=== PATIENT | female | born 1985 | race Caucasian/White ===

== ENCOUNTER 2017-05-14 12:18 | Emergency (ER) | payer BC ==
[~2017-05-14] VITALS: Ht 170.2 cm; Wt 92.5 kg
[~2017-05-14 12:18] MED LIST: AMITRIPTYLINE H75 MG PO; ATIVAN1 MG PO; CARAFATE1 GM PO; CARAFATE100 MG/ML PO; CEFDINIR300 MG PO; CLEOCIN300 MG PO; DIFLUCAN100 MG PO; DILAUDID 11 MG/1 ML PO; DILAUDID2 MG PO; ENDOCET 5-3251 EACH PO; FLAGYL500 MG PO; FLEXERIL10 MG PO; FLUOXETINE HCL20 MG PO; FLUOXETINE HCL40 MG PO; HYDROCODON-ACE1 EAC7 PO; HYDROMORPHONE HC4 MG PO; IMODIUM MS REL1 EACH PO; INSULIN ASPART SQ; INSULIN PUMP SCCONT; LANTUS 3 M100 UNITS1 SC; LEVAQUIN500 MG PO; LEVEMIR FL100 UNIT/1 SC; LEVEMIR FL100 UNITS/ SC; LEVEMIR100 UNIT/2 SC; LIDODERM 5% P1 PATCH TD; LINZESS145 MCG PO; MAGNESIUM400 MG PO; MECLIZINE HCL25 MG PO; METOCLOPRAMIDE H5 MG PO; MIRALAX255 GM PO; NAPROSYN500 MG PO; NORCO 5/3251 TABLET PO; NOVOLOG 10100 UNITS/ SC; NOVOLOG PE100 UNITS/ SC; NOVOLOG PE100 UNITS/ SQ; OMEPRAZOLE40 M1 PO; OXYCODONE HCL10 MG PO; OXYCODONE HCL5 MG PO; PANTOPRAZOLE SO40 MG PO; PEPCID20 MG PO; PERCOCET 5/31 TABLET PO; PROTONIX20 MG PO; PROTONIX40 MG PO; PROZAC20 MG PO; REGLAN5 MG PO; RESTORIL15 MG PO; ROBITUSSIN COU118 M6 PO; SKELAXIN800 MG PO; SNAP INSULIN P1 EACH MC; TYLENOL EXTRA500 MG PO; TYLENOL WITH C1 EACH PO; ULTRAM50 MG PO; VICODIN 5-3001 EACH PO; VICODIN,LORT1 TABLET PO; ZOFRAN ODT4 MG PO; ZOFRAN ODT8 MG PO; ZOFRAN4 MG PO
[2017-05-14 14:53] LABS: ADD MIUA? YES; BILIRUBIN NEGATIVE; BLOOD SMALL; COLOR STRAW ((YELLOW)); GLUCOSE (STRIP) >=500; KETONES 80; LEUKOCYTES NEGATIVE; NITRITE NEGATIVE; PROTEIN (STRIP) NEGATIVE; SPECIFIC GRAVITY 1.033 (1.000-1.030); UROBILINOGEN 0.2 MG/DL (0.2-1.0)
[2017-05-14 15:04] LABS: BACTERIA RARE /HPF; EPITHELIAL CELLS 1+ /HPF; MUCUS NONE SEEN /LPF; UCUL ADDED? NO; WHITE BLOOD CELLS 0-5 /HPF (0-5)
[2017-05-14 15:12] LABS: EOSINOPHIL (%) 0.1 % (0-5); HEMATOCRIT 39.2 % (36.0-46.0); IMMATURE GRANULOCYTE (%) 1.1 % (0.0-0.7); IMMATURE GRANULOCYTE COUNT 0.1 K/uL; INSTRUMENT ABS NEUTROPHIL CT 7.6 K/uL; LYMPHOCYTE COUNT 1.9 K/uL (1.0-2.8); MCH 29.6 PG (29.0-34.0); MCHC 32.7 G/DL (30.0-36.0); MCV 90.7 FL (83-99); MEAN PLAT.VOLUME 10.2 uM^3 (9.5-12.4); MONOCYTE (%) 4.8 % (3-12); MONOCYTE COUNT 0.5 K/uL (0-0.8); NEUTROPHIL (%) 74.9 % (45-76); NEUTROPHIL COUNT 7.6 K/uL (1.8-6.4); PLATELET COUNT 234 K/uL (156-360); RBC DIS.WIDTH-CV 12.5 % (11.8-14.6); RBC DIS.WIDTH-SD 41.2 % (39-53); RED BLOOD COUNT 4.32 M/uL (3.80-5.20); WHITE BLOOD COUNT 10.1 K/uL (4.1-10.2)
[2017-05-14 15:16] LABS: CARBON DIOXIDE (BICARBONATE) 24.5 MEQ/L (20-31)
[2017-05-14 15:21] LABS: CHLORIDE 101 mEq/L (99-109); POTASSIUM 4.5 mEq/L (3.7-5.4); SODIUM 133 mEq/L (136-147)
[2017-05-14 15:25] LABS: ANION GAP 10 MEQ/L (2-14); TOTAL BILIRUBIN 0.8 mg/dL (0.0-1.0)
[2017-05-14 15:27] LABS: ALKALINE PHOSPHATASE 101 IU/L (3-129); GFR ESTIMATE (CALCULATED) > 59 mL/min/
[2017-05-14 15:28] LABS: UREA NITROGEN (BUN) 11 mg/dL (9-23)
[2017-05-14 15:34] LABS: GLUCOSE 517 mg/dL (70-99)
[2017-05-14 17:48] LABS: POINT-OF-CARE METER ID UU13113747
[2017-05-14] MEDS ORDERED: CHERATUSSIN AC473 ML PO (18:24)
[2017-05-14 19:27] VITALS: BP 109/61
[2017-05-15 22:07] LABS: POINT-OF-CARE METER ID UU13113778
== END 2017-05-14 19:30 | disposition home or self-care (01) ==
LOC: EME 12:18
PROVIDERS: Emergency Medicine
DX: E10.65 Type 1 diabetes mellitus with hyperglycemia (principal); E86.0 Dehydration; Z79.4 Long term (current) use of insulin; Z96.41 Presence of insulin pump (external) (internal); R10.30 Lower abdominal pain, unspecified; R05 Cough; R00.0 Tachycardia, unspecified; Z87.11 Personal history of peptic ulcer disease; Z87.891 Personal history of nicotine dependence
CPT/HCPCS: 36600; 80053; 81003; 82803; 82948; 85025; 93005; 99281; 99285; J1200; J2270; J2405; J7030

== ENCOUNTER 2017-06-14 17:21 | Emergency (ER) | payer BC ==
[~2017-06-14] VITALS: Ht 170.2 cm; Wt 89.8 kg
[~2017-06-14 17:21] MED LIST changes: +CHERATUSSIN AC473 ML PO
[2017-06-14 18:58] LABS: ADD MIUA? NO; BILIRUBIN NEGATIVE; BLOOD NEGATIVE; COLOR STRAW ((YELLOW)); GLUCOSE (STRIP) >=500; KETONES 20; LEUKOCYTES NEGATIVE; NITRITE NEGATIVE; PROTEIN (STRIP) NEGATIVE; SPECIFIC GRAVITY 1.038 (1.000-1.030); UCUL ADDED? NO; UROBILINOGEN 0.2 MG/DL (0.2-1.0)
[2017-06-14 19:41] LABS: HEMATOCRIT 40.4 % (36.0-46.0); MCH 30.3 PG (29.0-34.0); MCHC 33.4 G/DL (30.0-36.0); MCV 90.6 FL (83-99); MEAN PLAT.VOLUME 10.8 uM^3 (9.5-12.4); PLATELET COUNT 253 K/uL (156-360); RBC DIS.WIDTH-CV 12.5 % (11.8-14.6); RBC DIS.WIDTH-SD 41.1 % (39-53); RED BLOOD COUNT 4.46 M/uL (3.80-5.20); WHITE BLOOD COUNT 11.2 K/uL (4.1-10.2)
[2017-06-14 19:50] LABS: CHLORIDE 95 mEq/L (99-109); POTASSIUM 4.9 mEq/L (3.7-5.4); SODIUM 131 mEq/L (136-147)
[2017-06-14 19:53] LABS: ANION GAP 13 MEQ/L (2-14)
[2017-06-14 19:54] LABS: TOTAL BILIRUBIN 0.8 mg/dL (0.0-1.0)
[2017-06-14 19:56] LABS: ALKALINE PHOSPHATASE 111 IU/L (3-129); GFR ESTIMATE (CALCULATED) > 59 mL/min/
[2017-06-14 19:57] LABS: UREA NITROGEN (BUN) 12 mg/dL (9-23)
[2017-06-14 19:59] LABS: GLUCOSE 742 mg/dL (70-99)
[2017-06-14 20:04] LABS: QUANTITATIVE HCG < 4.0 MIU/ML
[2017-06-14 22:10] LABS: POINT-OF-CARE METER ID UU13113702
[2017-06-15 00:24] LABS: POINT-OF-CARE METER ID UU13113747
[2017-06-15 00:54] VITALS: BP 102/78
== END 2017-06-15 00:55 | disposition home or self-care (01) ==
LOC: EME 17:21
PROVIDERS: Emergency Medicine
DX: E11.65 Type 2 diabetes mellitus with hyperglycemia (principal); R10.31 Right lower quadrant pain; Z79.4 Long term (current) use of insulin; K21.9 Gastro-esophageal reflux disease without esophagitis; F32.9 Major depressive disorder, single episode, unspecified; F41.9 Anxiety disorder, unspecified; Z88.0 Allergy status to penicillin; Z88.8 Allergy status to other drugs, medicaments and biological substances; Z87.891 Personal history of nicotine dependence
CPT/HCPCS: 71020; 74176; 80053; 81003; 82010; 82948; 84702; 85027; 99281; 99285; J3010; J7030

== ENCOUNTER 2017-07-29 14:34 | Emergency (ER) | payer SELFPAY ==
[~2017-07-29] VITALS: Ht 167.6 cm; Wt 93.0 kg
[2017-07-29 15:08] LABS: HEMATOCRIT 39.4 % (36.0-46.0); MCHC 33.2 G/DL (30.0-36.0); MCV 90.4 FL (83-99); MEAN PLAT.VOLUME 9.7 uM^3 (9.5-12.4); PLATELET COUNT 385 K/uL (156-360); RBC DIS.WIDTH-CV 12.7 % (11.8-14.6); RBC DIS.WIDTH-SD 42.1 % (39-53); RED BLOOD COUNT 4.36 M/uL (3.80-5.20); WHITE BLOOD COUNT 8.9 K/uL (4.1-10.2)
[2017-07-29 15:22] LABS: ADD MIUA? YES; BILIRUBIN NEGATIVE; BLOOD SMALL; COLOR COLORLESS ((YELLOW)); GLUCOSE (STRIP) >=500; KETONES NEGATIVE; LEUKOCYTES NEGATIVE; NITRITE NEGATIVE; PROTEIN (STRIP) NEGATIVE; SPECIFIC GRAVITY 1.028 (1.000-1.030); UROBILINOGEN 0.2 MG/DL (0.2-1.0)
[2017-07-29 15:24] LABS: CHLORIDE 98 mEq/L (99-109); SODIUM 132 mEq/L (136-147)
[2017-07-29 15:27] LABS: ANION GAP 10 MEQ/L (2-14)
[2017-07-29 15:28] LABS: TOTAL BILIRUBIN 0.6 mg/dL (0.0-1.0)
[2017-07-29 15:29] LABS: ALKALINE PHOSPHATASE 125 IU/L (3-129)
[2017-07-29 15:30] LABS: GFR ESTIMATE (CALCULATED) > 59 mL/min/
[2017-07-29 15:31] LABS: UREA NITROGEN (BUN) 15 mg/dL (9-23)
[2017-07-29 15:33] LABS: BACTERIA NONE SEEN /HPF; EPITHELIAL CELLS RARE /HPF; MUCUS NONE SEEN /LPF; RED BLOOD CELLS 0-5 /HPF (0-5); UCUL ADDED? NO; WHITE BLOOD CELLS 0-5 /HPF (0-5)
[2017-07-29 15:37] LABS: GLUCOSE 522 mg/dL (70-99)
[2017-07-29 15:38] LABS: QUANTITATIVE HCG < 4.0 MIU/ML
[2017-07-29 16:42] LABS: CARBON DIOXIDE (BICARBONATE) 29.8 MEQ/L (20-31)
[2017-07-29 17:08] LABS: POINT-OF-CARE METER ID UU13113702
[2017-07-29 19:10] LABS: POINT-OF-CARE METER ID UU13113702
[2017-07-29] MEDS ORDERED: MUCINEX DM ER1 EACH PO (19:11)
[2017-07-29 19:15] VITALS: BP 101/86
[2017-07-31 21:28] LABS: POINT-OF-CARE METER ID UU13113702
[2017-07-31 21:28] LABS: POINT-OF-CARE METER ID UU13113778
== END 2017-07-29 19:26 | disposition home or self-care (01) ==
LOC: EME 14:34
DX: E11.65 Type 2 diabetes mellitus with hyperglycemia (principal); R10.9 Unspecified abdominal pain; R51 Headache; R11.0 Nausea; R35.0 Frequency of micturition; Z79.4 Long term (current) use of insulin; Z96.41 Presence of insulin pump (external) (internal); Z87.11 Personal history of peptic ulcer disease; Z87.891 Personal history of nicotine dependence
CPT/HCPCS: 80053; 81003; 82010; 82803; 82948; 84702; 85027; 99281; 99285; J7030

== ENCOUNTER 2018-01-05 19:45 | Inpatient (IN) | payer BC ==
[~2018-01-05] VITALS: Ht 170.2 cm; Wt 99.8 kg
[~2018-01-05 19:45] MED LIST changes: +INSULIN PUMP MC; +MUCINEX DM ER1 EACH PO
[2018-01-05 20:45] LABS: APPEARANCE CLEAR ((CLEAR)); BILIRUBIN NEGATIVE; BLOOD NEGATIVE; COLOR STRAW ((YELLOW)); GLUCOSE (STRIP) >=500; KETONES 80; LEUKOCYTES NEGATIVE; NITRITE NEGATIVE; PROTEIN (STRIP) NEGATIVE; UCUL ADDED? NO; UROBILINOGEN 0.2 MG/DL (0.2-1.0)
[2018-01-05 20:53] LABS: BASOPHIL (%) 0.5 % (0-1); BASOPHIL COUNT 0.1 K/uL (0-0.1); EOSINOPHIL (%) 0.4 % (0-5); HEMATOCRIT 31.8 % (36.0-46.0); HEMOGLOBIN 10.7 G/DL (11.9-15.5); IMMATURE GRANULOCYTE (%) 2.1 % (0.0-0.7); LYMPHOCYTE COUNT 1.9 K/uL (1.0-2.8); MCH 29.9 PG (29.0-34.0); MCHC 33.6 G/DL (30.0-36.0); MCV 88.8 FL (83-99); MONOCYTE (%) 4.7 % (3-12); MONOCYTE COUNT 0.5 K/uL (0-0.8); NEUTROPHIL (%) 73.3 % (45-76); NEUTROPHIL COUNT 7.3 K/uL (1.8-6.4); PLATELET COUNT 364 K/uL (156-360); RBC DIS.WIDTH-CV 13.2 % (11.8-14.6); RBC DIS.WIDTH-SD 42.5 % (39-53); RED BLOOD COUNT 3.58 M/uL (3.80-5.20)
[2018-01-05 21:08] LABS: ALBUMIN 3.8 g/dL (3.2-4.8)
[2018-01-05 21:09] LABS: CHLORIDE 95 mEq/L (99-109); POTASSIUM 4.8 mEq/L (3.7-5.4); SODIUM 132 mEq/L (136-147)
[2018-01-05 21:11] LABS: TOTAL PROTEIN 7.4 g/dL (6.4-8.3)
[2018-01-05 21:13] LABS: TOTAL BILIRUBIN 0.7 mg/dL (0.0-1.0)
[2018-01-05 21:14] LABS: ALKALINE PHOSPHATASE 118 IU/L (3-129)
[2018-01-05 21:15] LABS: GFR ESTIMATE (CALCULATED) > 59 mL/min/
[2018-01-05 21:16] LABS: AST (GOT) 10 IU/L (2-34); UREA NITROGEN (BUN) 16 mg/dL (9-23)
[2018-01-05 21:17] LABS: ALT (GPT) 27 IU/L (3-49)
[2018-01-05 21:18] LABS: LIPASE 3 U/L (1.0-51.0)
[2018-01-05 21:19] LABS: GLUCOSE 740 mg/dL (70-99)
[2018-01-05] MEDS ORDERED: ROBITUSSIN AC,T10 ML PO (22:59)
[2018-01-05] MEDS ORDERED: ATIVAN0.5 MG PO (23:02)
[2018-01-05] MEDS ORDERED: AZITHROMYCIN250 MG1 PO (23:02)
[2018-01-05] MEDS ORDERED: CLONAZEPAM1 MG PO (23:02)
[2018-01-05] MEDS ORDERED: ROBAXIN500 MG PO (23:02)
[2018-01-05] MEDS ORDERED: TRAZODONE HCL50 MG PO (23:03)
[2018-01-05] MEDS ORDERED: GABAPENTIN300 MG PO (23:03)
[2018-01-06 02:01] VITALS: BP 108/59
[2018-01-06 06:25] LABS: CHLORIDE 103 MEQ/L (99-109); UREA NITROGEN (BUN) 10 mg/dL (9-23)
[2018-01-06 06:30] LABS: CREATININE 0.5 MG/DL (0.6-1.3); GFR ESTIMATE (CALCULATED) > 59 mL/min/; GLUCOSE 74 mg/dL (70-99); POTASSIUM 3.8 MEQ/L (3.7-5.4); SODIUM 139 MEQ/L (136-147)
[2018-01-06 08:44] VITALS: BP 96/54
[2018-01-06 10:23] VITALS: BP 131/76
[2018-01-06 12:36] LABS: HEMOGLOBIN A1c (GLYCOHEMOGLOB) 10.3 % (Below 5.7)
[2018-01-06 15:42] VITALS: BP 131/84
[2018-01-06 17:37] LABS: BENZODIAZEPINES, URINE SCREEN Negative (200 ng/mL)
[2018-01-07 00:17] VITALS: BP 122/58
[2018-01-07 06:18] LABS: BASOPHIL (%) 0.6 % (0-1); BASOPHIL COUNT 0.1 K/uL (0-0.1); EOSINOPHIL COUNT 0.1 K/uL (0-0.3); HEMATOCRIT 33.3 % (36.0-46.0); HEMOGLOBIN 10.9 G/DL (11.9-15.5); IMMATURE GRANULOCYTE (%) 3.5 % (0.0-0.7); LYMPHOCYTE (%) 34.9 % (15-42); LYMPHOCYTE COUNT 2.9 K/uL (1.0-2.8); MCH 29.5 PG (29.0-34.0); MCHC 32.7 G/DL (30.0-36.0); MCV 90.2 FL (83-99); MONOCYTE COUNT 0.5 K/uL (0-0.8); NEUTROPHIL COUNT 4.5 K/uL (1.8-6.4); PLATELET COUNT 323 K/uL (156-360); RBC DIS.WIDTH-CV 13.3 % (11.8-14.6); RBC DIS.WIDTH-SD 43.9 % (39-53); RED BLOOD COUNT 3.69 M/uL (3.80-5.20); WHITE BLOOD COUNT 8.3 K/uL (4.1-10.2)
[2018-01-07 06:44] LABS: ALKALINE PHOSPHATASE 67 IU/L (3-129); ALT (GPT) 13 IU/L (3-49); AST (GOT) 8 IU/L (2-34); CHLORIDE 105 MEQ/L (99-109); CREATININE 0.5 MG/DL (0.6-1.3); GFR ESTIMATE (CALCULATED) > 59 mL/min/; SODIUM 139 MEQ/L (136-147); TOTAL BILIRUBIN 0.3 MG/DL (0.0-1.0); TOTAL PROTEIN 5.7 G/DL (6.4-8.3); UREA NITROGEN (BUN) 7 mg/dL (9-23)
[2018-01-07 06:45] VITALS: BP 129/70
[2018-01-07 06:47] LABS: GLUCOSE 339 mg/dL (70-99); POTASSIUM 4.6 MEQ/L (3.7-5.4)
[2018-01-07 06:49] VITALS: BP 121/67
== END 2018-01-07 12:17 | disposition home or self-care (01) | DRG 639 ==
LOC: EME 19:45 → EDOF 23:54 → 5EAST 23:54 → ENRESERV 23:59 → 5EAST 01-06 01:47
PROVIDERS: Emergency Medicine; Hospitalist; Internal Medicine
DX: E10.65 Type 1 diabetes mellitus with hyperglycemia (principal); J02.9 Acute pharyngitis, unspecified; F41.0 Panic disorder [episodic paroxysmal anxiety]; F32.9 Major depressive disorder, single episode, unspecified; F17.200 Nicotine dependence, unspecified, uncomplicated; I10 Essential (primary) hypertension; K27.9 Peptic ulcer, site unspecified, unspecified as acute or chronic, without hemorrhage or perforation; K21.9 Gastro-esophageal reflux disease without esophagitis; E66.9 Obesity, unspecified; Z68.34 Body mass index [BMI] 34.0-34.9, adult; G47.00 Insomnia, unspecified; Z79.4 Long term (current) use of insulin; Z96.41 Presence of insulin pump (external) (internal); Z90.710 Acquired absence of both cervix and uterus; Z83.3 Family history of diabetes mellitus; Z82.49 Family history of ischemic heart disease and other diseases of the circulatory system
CPT/HCPCS: 71045; 80048; 80053; 80306 90; 81003; 82800; 82948; 83036; 83690; 85025; 99281; 99285; J1650; J2270; J2405; J3010; J7030

== ENCOUNTER 2018-02-11 14:05 | Inpatient (IN) | payer BC ==
[2018-02-11] VITALS (8 sets, daily range): BP systolic 91–139; BP diastolic 64–81
[~2018-02-11] VITALS: Ht 170.2 cm; Wt 91.6 kg
[~2018-02-11 14:05] MED LIST changes: +ATIVAN0.5 MG PO; +AZITHROMYCIN250 MG1 PO; +CLONAZEPAM1 MG PO; +GABAPENTIN300 MG PO; +ROBAXIN500 MG PO; +ROBITUSSIN AC,T10 ML PO; +TRAZODONE HCL50 MG PO
[2018-02-11 14:54] LABS: APPEARANCE CLEAR ((CLEAR)); BILIRUBIN NEGATIVE; BLOOD NEGATIVE; COLOR COLORLESS ((YELLOW)); GLUCOSE (STRIP) >=500; KETONES 80; LEUKOCYTES NEGATIVE; NITRITE NEGATIVE; PROTEIN (STRIP) NEGATIVE; SPECIFIC GRAVITY 1.029 (1.000-1.030); UCUL ADDED? NO; UROBILINOGEN 0.2 MG/DL (0.2-1.0)
[2018-02-11 15:22] LABS: BASOPHIL (%) 0.3 % (0-1); EOSINOPHIL (%) 0 % (0-5); HEMATOCRIT 37.4 % (36.0-46.0); HEMOGLOBIN 12.9 G/DL (11.9-15.5); IMMATURE GRANULOCYTE (%) 0.5 % (0.0-0.7); LYMPHOCYTE (%) 12.4 % (15-42); LYMPHOCYTE COUNT 1.9 K/uL (1.0-2.8); MCH 30.3 PG (29.0-34.0); MCHC 34.5 G/DL (30.0-36.0); MCV 87.8 FL (83-99); MONOCYTE (%) 3.4 % (3-12); MONOCYTE COUNT 0.5 K/uL (0-0.8); NEUTROPHIL (%) 83.4 % (45-76); NEUTROPHIL COUNT 12.8 K/uL (1.8-6.4); PLATELET COUNT 280 K/uL (156-360); RBC DIS.WIDTH-SD 41.8 % (39-53); RED BLOOD COUNT 4.26 M/uL (3.80-5.20); WHITE BLOOD COUNT 15.4 K/uL (4.1-10.2)
[2018-02-11 15:24] LABS: CARBON DIOXIDE (BICARBONATE) 20.7 MEQ/L (20-31)
[2018-02-11 15:29] LABS: ALBUMIN 4.2 g/dL (3.2-4.8); CHLORIDE 97 mEq/L (99-109); POTASSIUM 4.9 mEq/L (3.7-5.4); SODIUM 133 mEq/L (136-147)
[2018-02-11 15:32] LABS: TOTAL PROTEIN 7.7 g/dL (6.4-8.3)
[2018-02-11 15:34] LABS: TOTAL BILIRUBIN 1.2 mg/dL (0.0-1.0)
[2018-02-11 15:35] LABS: ALKALINE PHOSPHATASE 109 IU/L (3-129)
[2018-02-11 15:36] LABS: CREATININE 1.1 mg/dL (0.6-1.3); GFR ESTIMATE (CALCULATED) > 59 mL/min/
[2018-02-11 15:37] LABS: AST (GOT) 10 IU/L (2-34); UREA NITROGEN (BUN) 15 mg/dL (9-23)
[2018-02-11 15:38] LABS: ALT (GPT) 14 IU/L (3-49)
[2018-02-11 15:40] LABS: GLUCOSE 670 mg/dL (70-99)
[2018-02-11 15:44] LABS: QUANTITATIVE HCG < 4.0 MIU/ML
[2018-02-11] MEDS ORDERED: TYLENOL WITH C1 EACH PO (16:19)
[2018-02-11] MEDS ORDERED: CARAFATE100 MG/ML PO (16:19)
[2018-02-12] VITALS (13 sets, daily range): BP systolic 82–129; BP diastolic 57–93
[2018-02-12 01:00] LABS: CHLORIDE 103 mEq/L (99-109); SODIUM 136 mEq/L (136-147)
[2018-02-12 01:01] LABS: POTASSIUM 3.7 mEq/L (3.7-5.4)
[2018-02-12 01:02] LABS: GLUCOSE 193 mg/dL (70-99)
[2018-02-12 01:05] LABS: PHOSPHORUS 2.4 mg/dL (2.5-4.9)
[2018-02-12 01:06] LABS: CREATININE 0.7 mg/dL (0.6-1.3); GFR ESTIMATE (CALCULATED) > 59 mL/min/
[2018-02-12 01:07] LABS: UREA NITROGEN (BUN) 11 mg/dL (9-23)
[2018-02-12 06:41] LABS: CHLORIDE 104 MEQ/L (99-109); CREATININE 0.6 MG/DL (0.6-1.3); GFR ESTIMATE (CALCULATED) > 59 mL/min/; GLUCOSE 127 mg/dL (70-99); POTASSIUM 3.9 MEQ/L (3.7-5.4); SODIUM 141 MEQ/L (136-147); UREA NITROGEN (BUN) 11 mg/dL (9-23)
[2018-02-12 09:53] LABS: CHLORIDE 102 MEQ/L (99-109); CREATININE 0.5 MG/DL (0.6-1.3); GFR ESTIMATE (CALCULATED) > 59 mL/min/; PHOSPHORUS 3.1 mg/dL (2.5-4.9); SODIUM 137 MEQ/L (136-147); UREA NITROGEN (BUN) 8 mg/dL (9-23)
[2018-02-12 09:58] LABS: GLUCOSE 246 mg/dL (70-99)
[2018-02-12 14:18] LABS: CHLORIDE 105 MEQ/L (99-109); CREATININE 0.6 MG/DL (0.6-1.3); GFR ESTIMATE (CALCULATED) > 59 mL/min/; GLUCOSE 175 mg/dL (70-99); PHOSPHORUS 2.6 mg/dL (2.5-4.9); POTASSIUM 3.3 MEQ/L (3.7-5.4); SODIUM 139 MEQ/L (136-147); UREA NITROGEN (BUN) 9 mg/dL (9-23)
== END 2018-02-12 13:58 | disposition home or self-care (01) | DRG 919 ==
LOC: EME 14:05 → EDOF 16:25 → ENRESERV 16:26 → 4WEST 18:09
PROVIDERS: Emergency Medicine; Internal Medicine Critical Care Medicine; Internal Medicine Pulmonary Disease
DX: T85.694A Other mechanical complication of insulin pump, initial encounter (principal); E10.10 Type 1 diabetes mellitus with ketoacidosis without coma; Z96.41 Presence of insulin pump (external) (internal); G89.29 Other chronic pain; R10.9 Unspecified abdominal pain; F17.200 Nicotine dependence, unspecified, uncomplicated; E66.9 Obesity, unspecified; K21.9 Gastro-esophageal reflux disease without esophagitis; F41.9 Anxiety disorder, unspecified; G43.909 Migraine, unspecified, not intractable, without status migrainosus; F32.9 Major depressive disorder, single episode, unspecified; Z87.11 Personal history of peptic ulcer disease; Z79.4 Long term (current) use of insulin; Z88.2 Allergy status to sulfonamides; Z88.0 Allergy status to penicillin
CPT/HCPCS: 80048; 80048 91; 80053; 81003; 82010; 82803; 82948; 83735; 84100; 84702; 85025; 87641; 99281; 99285; J1170; J1815; J2060; J3010; J7030; J7050

== ENCOUNTER 2018-03-09 22:37 | Emergency (ER) | payer BC ==
[~2018-03-09] VITALS: Ht 170.2 cm; Wt 94.9 kg
[2018-03-09 22:58] LABS: HEMATOCRIT 32.9 % (36.0-46.0); MCH 29.9 PG (29.0-34.0); MCHC 33.4 G/DL (30.0-36.0); MCV 89.4 FL (83-99); PLATELET COUNT 243 K/uL (156-360); RBC DIS.WIDTH-CV 12.8 % (11.8-14.6); RBC DIS.WIDTH-SD 42.1 % (39-53); RED BLOOD COUNT 3.68 M/uL (3.80-5.20); WHITE BLOOD COUNT 7.5 K/uL (4.1-10.2)
[2018-03-09 23:20] LABS: CHLORIDE 96 mEq/L (99-109); POTASSIUM 4.3 mEq/L (3.7-5.4); SODIUM 133 mEq/L (136-147)
[2018-03-09 23:23] LABS: TOTAL PROTEIN 7.2 g/dL (6.4-8.3)
[2018-03-09 23:25] LABS: TOTAL BILIRUBIN 0.4 mg/dL (0.0-1.0)
[2018-03-09 23:26] LABS: ALKALINE PHOSPHATASE 100 IU/L (3-129); GFR ESTIMATE (CALCULATED) > 59 mL/min/
[2018-03-09 23:27] LABS: UREA NITROGEN (BUN) 17 mg/dL (9-23)
[2018-03-09 23:28] LABS: AST (GOT) 11 IU/L (2-34)
[2018-03-09 23:29] LABS: ALT (GPT) 16 IU/L (3-49)
[2018-03-09 23:35] LABS: QUANTITATIVE HCG < 4.0 MIU/ML
[2018-03-09 23:36] LABS: GLUCOSE 682 mg/dL (70-99)
[2018-03-10 00:19] LABS: MAGNESIUM 1.9 mg/dL (1.3-2.7)
[2018-03-10 00:26] LABS: PHOSPHORUS 3.8 mg/dL (2.5-4.9)
[2018-03-10 00:27] LABS: LIPASE 5 U/L (1.0-51.0)
[2018-03-10 00:38] LABS: CARBON DIOXIDE (BICARBONATE) 31.1 MEQ/L (20-31)
[2018-03-10 02:06] LABS: APPEARANCE CLEAR ((CLEAR)); BILIRUBIN NEGATIVE; BLOOD NEGATIVE; COLOR COLORLESS ((YELLOW)); GLUCOSE (STRIP) >=500; KETONES 20; LEUKOCYTES NEGATIVE; NITRITE NEGATIVE; PROTEIN (STRIP) NEGATIVE; UCUL ADDED? NO; UROBILINOGEN 0.2 MG/DL (0.2-1.0)
[2018-03-10] MEDS ORDERED: PHENERGAN DM SYR1 ML PO (04:40)
[2018-03-10] MEDS ORDERED: ZOFRAN4 MG PO (04:41)
[2018-03-10] MEDS ORDERED: TESSALON PERLE100 MG PO (04:47)
[2018-03-10] MEDS ORDERED: ROBITUSSIN DM118 ML PO (04:47)
[2018-03-10 04:54] VITALS: BP 100/63
== END 2018-03-10 04:55 | disposition home or self-care (01) ==
LOC: EME 22:37
PROVIDERS: Emergency Medicine
DX: E10.65 Type 1 diabetes mellitus with hyperglycemia (principal); R05 Cough; R11.2 Nausea with vomiting, unspecified; Z79.4 Long term (current) use of insulin; Z96.41 Presence of insulin pump (external) (internal); Z87.11 Personal history of peptic ulcer disease; Z88.0 Allergy status to penicillin; Z88.2 Allergy status to sulfonamides; F17.200 Nicotine dependence, unspecified, uncomplicated
CPT/HCPCS: 71046; 80053; 81003; 82010; 82803; 82948; 83690; 83735; 84100; 84702; 85027; 99281; 99285; J2270; J2405; J7030; Q0169

== ENCOUNTER 2018-04-03 16:34 | Inpatient (IN) | payer BC ==
[~2018-04-03] VITALS: Ht 170.2 cm; Wt 87.4 kg
[~2018-04-03 16:34] MED LIST changes: +PHENERGAN DM SYR1 ML PO; -PROTONIX20 MG PO; +ROBITUSSIN DM118 ML PO; +TESSALON PERLE100 MG PO
[2018-04-03 17:37] LABS: APPEARANCE CLEAR ((CLEAR)); BILIRUBIN NEGATIVE; BLOOD NEGATIVE; COLOR STRAW ((YELLOW)); GLUCOSE (STRIP) >=500; KETONES 80; LEUKOCYTES NEGATIVE; NITRITE NEGATIVE; PROTEIN (STRIP) NEGATIVE; SPECIFIC GRAVITY 1.026 (1.000-1.030); UCUL ADDED? NO; UROBILINOGEN 0.2 MG/DL (0.2-1.0)
[2018-04-03 17:44] LABS: HEMATOCRIT 36.5 % (36.0-46.0); HEMOGLOBIN 12.4 G/DL (11.9-15.5); MCH 30.4 PG (29.0-34.0); MCV 89.5 FL (83-99); PLATELET COUNT 267 K/uL (156-360); RBC DIS.WIDTH-SD 42.2 % (39-53); RED BLOOD COUNT 4.08 M/uL (3.80-5.20); WHITE BLOOD COUNT 14.2 K/uL (4.1-10.2)
[2018-04-03 17:49] LABS: CARBON DIOXIDE (BICARBONATE) 9.6 MEQ/L (20-31)
[2018-04-03 17:55] LABS: ALBUMIN 4.3 g/dL (3.2-4.8); CHLORIDE 100 mEq/L (99-109); POTASSIUM 4.7 mEq/L (3.7-5.4); SODIUM 129 mEq/L (136-147)
[2018-04-03 17:57] LABS: TOTAL PROTEIN 7.7 g/dL (6.4-8.3)
[2018-04-03 17:59] LABS: TOTAL BILIRUBIN 0.6 mg/dL (0.0-1.0)
[2018-04-03 18:01] LABS: ALKALINE PHOSPHATASE 95 IU/L (3-129); CREATININE 1.1 mg/dL (0.6-1.3); GFR ESTIMATE (CALCULATED) > 59 mL/min/
[2018-04-03 18:02] LABS: UREA NITROGEN (BUN) 10 mg/dL (9-23)
[2018-04-03 18:03] LABS: AST (GOT) 10 IU/L (2-34)
[2018-04-03 18:04] LABS: ALT (GPT) 14 IU/L (3-49); LIPASE 4 U/L (1.0-51.0)
[2018-04-03 18:07] LABS: GLUCOSE 598 mg/dL (70-99)
[2018-04-03] MEDS ORDERED: ACETAMINOPHEN-1 EAC1 PO (19:06)
[2018-04-03] MEDS ORDERED: QVAR REDIHALE10.6 G1 IH (19:07)
[2018-04-03 20:24] VITALS: BP 127/90
[2018-04-03 20:30] VITALS: BP 112/79
[2018-04-03 21:00] VITALS: BP 114/72
[2018-04-03 21:18] LABS: CHLORIDE 109 mEq/L (99-109); POTASSIUM 4.6 mEq/L (3.7-5.4); SODIUM 135 mEq/L (136-147)
[2018-04-03 21:21] LABS: GLUCOSE 272 mg/dL (70-99)
[2018-04-03 21:23] LABS: GFR ESTIMATE (CALCULATED) > 59 mL/min/
[2018-04-03 21:24] LABS: UREA NITROGEN (BUN) 8 mg/dL (9-23)
[2018-04-03 21:34] LABS: PHOSPHORUS 2.2 mg/dL (2.5-4.9)
[2018-04-03 22:00] VITALS: BP 105/64
[2018-04-03 23:00] VITALS: BP 113/89
[2018-04-04] VITALS (23 sets, daily range): BP systolic 88–135; BP diastolic 59–88
[2018-04-04 00:41] LABS: CHLORIDE 107 mEq/L (99-109); POTASSIUM 4.1 mEq/L (3.7-5.4); SODIUM 135 mEq/L (136-147)
[2018-04-04 00:43] LABS: GLUCOSE 227 mg/dL (70-99)
[2018-04-04 00:47] LABS: CREATININE 0.8 mg/dL (0.6-1.3); GFR ESTIMATE (CALCULATED) > 59 mL/min/; PHOSPHORUS 2.1 mg/dL (2.5-4.9)
[2018-04-04 00:48] LABS: UREA NITROGEN (BUN) 7 mg/dL (9-23)
[2018-04-04 04:33] LABS: CHLORIDE 109 mEq/L (99-109); POTASSIUM 4.5 mEq/L (3.7-5.4); SODIUM 134 mEq/L (136-147)
[2018-04-04 04:34] LABS: MAGNESIUM 1.7 mg/dL (1.3-2.7)
[2018-04-04 04:35] LABS: GLUCOSE 181 mg/dL (70-99)
[2018-04-04 04:38] LABS: PHOSPHORUS 2.1 mg/dL (2.5-4.9)
[2018-04-04 04:39] LABS: CREATININE 0.7 mg/dL (0.6-1.3); GFR ESTIMATE (CALCULATED) > 59 mL/min/
[2018-04-04 04:39] LABS: PHOSPHORUS 2.1 mg/dL (2.5-4.9)
[2018-04-04 04:40] LABS: UREA NITROGEN (BUN) 6 mg/dL (9-23)
[2018-04-04 09:01] LABS: CHLORIDE 105 MEQ/L (99-109); SODIUM 134 MEQ/L (136-147)
[2018-04-04 09:07] LABS: CREATININE 0.5 MG/DL (0.6-1.3); GFR ESTIMATE (CALCULATED) > 59 mL/min/; GLUCOSE 197 mg/dL (70-99); PHOSPHORUS 2.1 mg/dL (2.5-4.9); UREA NITROGEN (BUN) 5 mg/dL (9-23)
[2018-04-04 10:00] LABS: HEMOGLOBIN A1c (GLYCOHEMOGLOB) 10.3 % (Below 5.7)
[2018-04-04 12:51] LABS: CHLORIDE 107 MEQ/L (99-109); POTASSIUM 3.7 MEQ/L (3.7-5.4); SODIUM 137 MEQ/L (136-147)
[2018-04-04 12:56] LABS: CREATININE 0.6 MG/DL (0.6-1.3); GFR ESTIMATE (CALCULATED) > 59 mL/min/; PHOSPHORUS 1.9 mg/dL (2.5-4.9); UREA NITROGEN (BUN) 7 mg/dL (9-23)
[2018-04-04 12:57] LABS: GLUCOSE 90 mg/dL (70-99)
[2018-04-04 14:55] LABS: BASOPHIL (%) 0.3 % (0-1); EOSINOPHIL (%) 0.7 % (0-5); EOSINOPHIL COUNT 0.1 K/uL (0-0.3); HEMATOCRIT 32.6 % (36.0-46.0); IMMATURE GRANULOCYTE (%) 0.9 % (0.0-0.7); LYMPHOCYTE (%) 22.6 % (15-42); LYMPHOCYTE COUNT 1.7 K/uL (1.0-2.8); MCH 29.9 PG (29.0-34.0); MCHC 33.7 G/DL (30.0-36.0); MCV 88.6 FL (83-99); MONOCYTE (%) 5.1 % (3-12); MONOCYTE COUNT 0.4 K/uL (0-0.8); NEUTROPHIL (%) 70.4 % (45-76); NEUTROPHIL COUNT 5.3 K/uL (1.8-6.4); PLATELET COUNT 218 K/uL (156-360); RBC DIS.WIDTH-CV 13.1 % (11.8-14.6); RBC DIS.WIDTH-SD 42.6 % (39-53); RED BLOOD COUNT 3.68 M/uL (3.80-5.20); WHITE BLOOD COUNT 7.5 K/uL (4.1-10.2)
[2018-04-04 15:23] LABS: CHLORIDE 105 MEQ/L (99-109); CREATININE 0.5 MG/DL (0.6-1.3); GFR ESTIMATE (CALCULATED) > 59 mL/min/; MAGNESIUM 1.8 mg/dl (1.3-2.7); POTASSIUM 4.1 MEQ/L (3.7-5.4); SODIUM 134 MEQ/L (136-147); UREA NITROGEN (BUN) 9 mg/dL (9-23)
[2018-04-04 15:28] LABS: GLUCOSE 315 mg/dL (70-99)
[2018-04-04 16:20] LABS: CHLORIDE 104 MEQ/L (99-109); POTASSIUM 4.4 MEQ/L (3.7-5.4); SODIUM 133 MEQ/L (136-147)
[2018-04-04 16:26] LABS: CREATININE 0.6 MG/DL (0.6-1.3); GFR ESTIMATE (CALCULATED) > 59 mL/min/; GLUCOSE 392 mg/dL (70-99); UREA NITROGEN (BUN) 9 mg/dL (9-23)
[2018-04-04 16:30] LABS: PHOSPHORUS 2.8 mg/dL (2.5-4.9)
[2018-04-04 19:04] LABS: CREATININE 0.6 MG/DL (0.6-1.3); GFR ESTIMATE (CALCULATED) > 59 mL/min/; POTASSIUM 4.6 MEQ/L (3.7-5.4); SODIUM 131 MEQ/L (136-147); UREA NITROGEN (BUN) 10 mg/dL (9-23)
[2018-04-04 19:05] LABS: CHLORIDE 101 MEQ/L (99-109)
[2018-04-04 19:08] LABS: GLUCOSE 476 mg/dL (70-99)
[2018-04-05 03:45] VITALS: BP 104/57
[2018-04-05 08:13] VITALS: BP 101/73
[2018-04-05] MEDS ORDERED: ACETAMINOPHEN-1 EAC1 PO (12:49)
[2018-04-05 12:51] VITALS: BP 101/73
[2018-04-05] MEDS ORDERED: NOVOLOG 10100 UNITS/ SCCONT (13:15)
== END 2018-04-05 14:31 | disposition home or self-care (01) | DRG 639 ==
LOC: EME 16:34 → 4WEST 18:25 → EDOF 18:25 → 5SOUTH 18:25 → ENRESERV 18:29 → 4WEST 20:26 → ENRESERV 04-04 15:41 → 5SOUTH 04-04 17:13
PROVIDERS: Internal Medicine; Physician Assistant; Specialist
DX: E10.10 Type 1 diabetes mellitus with ketoacidosis without coma (principal); E66.9 Obesity, unspecified; Z68.30 Body mass index [BMI] 30.0-30.9, adult; F41.9 Anxiety disorder, unspecified; G47.00 Insomnia, unspecified; K27.9 Peptic ulcer, site unspecified, unspecified as acute or chronic, without hemorrhage or perforation; F17.200 Nicotine dependence, unspecified, uncomplicated; Z79.4 Long term (current) use of insulin
CPT/HCPCS: 80048; 80048 91; 80053; 81003; 82010; 82803; 82948; 83036; 83690; 83735; 84100; 85025; 85027; 87641; 99281; 99285; C9113; J1170; J1644; J1815; J2060; J2270; J2405; J3010; J3475; J3480; J7030; J7050

== ENCOUNTER 2018-04-26 18:46 | Emergency (ER) | payer BC ==
[~2018-04-26] VITALS: Ht 177.8 cm; Wt 83.3 kg
[~2018-04-26 18:46] MED LIST changes: +ACETAMINOPHEN-1 EAC1 PO; +NOVOLOG 10100 UNITS/ SCCONT; +QVAR REDIHALE10.6 G1 IH
[2018-04-26 19:27] LABS: APPEARANCE CLEAR ((CLEAR)); BILIRUBIN NEGATIVE; BLOOD SMALL; COLOR STRAW ((YELLOW)); GLUCOSE (STRIP) >=500; KETONES 80; LEUKOCYTES NEGATIVE; NITRITE NEGATIVE; PROTEIN (STRIP) NEGATIVE; UROBILINOGEN 0.2 MG/DL (0.2-1.0)
[2018-04-26 19:40] LABS: ALBUMIN 4.5 g/dL (3.2-4.8); CHLORIDE 97 mEq/L (99-109); POTASSIUM 4.4 mEq/L (3.7-5.4); SODIUM 134 mEq/L (136-147)
[2018-04-26 19:42] LABS: TOTAL PROTEIN 8.2 g/dL (6.4-8.3)
[2018-04-26 19:43] LABS: HEMATOCRIT 38.7 % (36.0-46.0); MCH 29.9 PG (29.0-34.0); MCHC 33.6 G/DL (30.0-36.0); PLATELET COUNT 334 K/uL (156-360); RBC DIS.WIDTH-CV 12.4 % (11.8-14.6); RBC DIS.WIDTH-SD 40.6 % (39-53); RED BLOOD COUNT 4.35 M/uL (3.80-5.20)
[2018-04-26 19:44] LABS: TOTAL BILIRUBIN 0.7 mg/dL (0.0-1.0)
[2018-04-26 19:45] LABS: BACTERIA RARE /HPF; EPITHELIAL CELLS RARE /HPF; MUCUS TRACE /LPF; UCUL ADDED? NO; WHITE BLOOD CELLS 0-5 /HPF (0-5)
[2018-04-26 19:46] LABS: ALKALINE PHOSPHATASE 114 IU/L (3-129); CREATININE 1.2 mg/dL (0.6-1.3); GFR ESTIMATE (CALCULATED) 55 mL/min/
[2018-04-26 19:47] LABS: UREA NITROGEN (BUN) 18 mg/dL (9-23)
[2018-04-26 19:48] LABS: AST (GOT) 10 IU/L (2-34)
[2018-04-26 19:49] LABS: ALT (GPT) 13 IU/L (3-49)
[2018-04-26 19:55] LABS: QUANTITATIVE HCG < 4.0 MIU/ML
[2018-04-26 20:05] LABS: GLUCOSE 533 mg/dL (70-99)
[2018-04-26] MEDS ORDERED: CLEOCIN300 MG PO (21:54)
[2018-04-26 23:15] VITALS: BP 102/60
== END 2018-04-26 23:15 | disposition home or self-care (01) ==
LOC: EME 18:46
PROVIDERS: Emergency Medicine
DX: E11.65 Type 2 diabetes mellitus with hyperglycemia (principal); E86.0 Dehydration; L03.116 Cellulitis of left lower limb; Z79.4 Long term (current) use of insulin; F32.9 Major depressive disorder, single episode, unspecified; F41.9 Anxiety disorder, unspecified; K21.9 Gastro-esophageal reflux disease without esophagitis; F17.200 Nicotine dependence, unspecified, uncomplicated; Z88.2 Allergy status to sulfonamides; Z88.0 Allergy status to penicillin; Z88.5 Allergy status to narcotic agent; Z88.6 Allergy status to analgesic agent
CPT/HCPCS: 80053; 81003; 82010; 82803; 82948; 83605; 84702; 85027; 87040; 99281; 99285; J2060; J7030